=== PATIENT | female | born 1960 | race Caucasian/White ===

== ENCOUNTER 2021-04-02 08:02 | Emergency (ER) | payer OTHER ==
[~2021-04-02] VITALS: Ht 162.6 cm; Wt 56.7 kg
[2021-04-02 09:21] LABS: URINE BILIRUBIN NEGATIVE (Negative); URINE BLOOD TRACE (Negative); URINE CLARITY CLEAR; URINE COLOR YELLOW; URINE GLUCOSE-RANDOM* NEGATIVE (Negative); URINE KETONES TRACE (Negative); URINE LEUKOCYTES-REFLEX TRACE (Negative); URINE PROTEIN (DIPSTICK) NEGATIVE (Negative); URINE SPECIFIC GRAVITY >= 1.030 (1.005-1.035)
[2021-04-02 09:34] LABS: URINE NITRITE-REFLEX POSITIVE (Negative)
[2021-04-02 09:42] LABS: AMORPHOUS URATES Few /LPF (None Seen); CASTS None Seen /LPF (None Seen); SQUAMOUS 0-3 Few /LPF (0-3); URINE RBC None Seen /HPF (NONE SEEN); URINE WBC-REFLEX 0-5 Rare /HPF (0-5)
[2021-04-02] MEDS ORDERED: TRAMADOL 50 MG50 MG PO (13:01)
[2021-04-02] MEDS ORDERED: IBU600 MG PO (13:01)
[2021-04-02 13:04] VITALS: BP 102/60
== END 2021-04-02 13:04 | disposition home or self-care (01) ==
LOC: ER 08:02
PROVIDERS: Student in an Organized Health Care Education/Training Program
DX: S32.592A Other specified fracture of left pubis, initial encounter for closed fracture (principal); T74.21XA Adult sexual abuse, confirmed, initial encounter; F17.210 Nicotine dependence, cigarettes, uncomplicated; Z88.0 Allergy status to penicillin; Y93.89 Activity, other specified; Y92.89 Other specified places as the place of occurrence of the external cause; Y99.8 Other external cause status

== ENCOUNTER 2021-04-23 20:33 | Emergency (ER) | payer OTHER ==
[~2021-04-23] VITALS: Ht 162.6 cm; Wt 56.7 kg
--- NOTE | ~2021-04-23 | EMS ---
[facility] [address] [place] [address] EMS Patient Care Report Name: REYES BHARDWAJ Room #: DEP JORDI Nassar#: [id number] Admission: 04/23/21 Attend Phys: Discharge: 04/23/21 Date of : 56 Report #: [id number] THIS REPORT FOR: //name// Report Transmitted: 04/24/2021 09:42 EMS Care Summary [place], [place]/[facility] Incident [id number] @ 04/23/2021 19:58 Incident Location [address] / [place] [address] Patient REYES BHARDWAJ Female, 60 Years 1960 Patient Address [address] [place] [address] Patient History Behavioral/Psychiatric Disorder, Patient Allergies Penicillin allergy, Patient Medications None Reported, Chief Complaint strange behavior Disposition Transported No Lights/[place] Dispatch Reason Unknown Problem/Person Down Transported To [facility] Narrative pd state that they received several calls on pt. and that pt. was supposedly in the street yelling and carrying on and when they arrived they found pt. standing on a street corner crying and talking nonsense so we were called in. pt. states she has PTSD and she denied any si/hi. pt. states she consumes etoh [facility] [address] [place] [address] EMS Patient Care Report Name: REYES BHARDWAJ Room #: DEP JORDI Nassar#: [id number] Admission: 04/23/21 Attend Phys: Discharge: 04/23/21 Date of : 56 Report #: [id number] products socially or when she hurts but she had one shot today and she didn't hurt anywhere. pt. denied any other complaints or loc. pt. was ambulatory on scene with pd present. pt. was in no distress. pt. had a grocery cart with her with a bag of groceries in it. pt. was cooperative. pt. talked nonstop nonsense during transport. no change in pt. status enroute. Initial Vitals @20:17P: 91,R: 24,BP: 143/79,Pain: 0/10,GCS: 15,CO: 9,SpO2: 97,Revised Trauma: 12, @20:28P: 90,R: 24,Pain: 0/10,GCS: 15,SpO2: 97,Revised Trauma: 12, Assessments @20:09MENTAL:No Abnormalities,SKIN:No Abnormalities,HEENT:Head/Face: No Abnormalities,Eyes: No Abnormalities,Neck/Airway: No Abnormalities,LUNG SOUNDS:General: No Abnormalities,Left Upper: No Abnormalities,Right Upper: No Abnormalities,Left Lower: No Abnormalities,Right Lower: No Abnormalities,ABDOMEN:General: No Abnormalities,Left Upper: No Abnormalities,Right Upper: No Abnormalities,Left Lower: No Abnormalities,Right Lower: No Abnormalities,PELVIS//GI:No Abnormalities,EXTREMITIES:Left Arm: No Abnormalities,Right Arm: No Abnormalities,Left Leg: No Abnormalities,Right Leg: No Abnormalities,PULSE:NEURO:No Abnormalities, Impression Behavioral/psychiatric episode Procedures @20:09ALS AssessmentResponse: Unchanged Timeline 19:57,Call Received 19:57,Dispatch Notified 19:58,Dispatched 19:59,En Route 20:08,On Scene 20:09,At Patient 20:09,ALS Assessment,Response: Unchanged 20:17,BP: 143/79 M,PULSE: 91,RR: 24 R,SPO2: 97 Ox,ETCO2: ,BG: ,PAIN: 0,GCS: 15, 20:19,Depart Scene 20:28,BP: 140/ M,PULSE: 90,RR: 24 R,SPO2: 97 Ox,ETCO2: ,BG: ,PAIN: 0,GCS: 15, 20:30,At Destination 20:41,Call Closed Disclaimer [email or web address] Copyright 2020 [employer] This EMS Care Summary contains data elements from the applicable legal record [address] [address] EMS Patient Care Report Name: REYES BHARDWAJ Room #: DEP ER eCsario#: [id number] Admission: 04/23/21 Attend Phys: Discharge: 04/23/21 Date of : 56 Report #: [id number] (which may be displayed differently). It is designed to provide pertinent information for the following purposes: continuity of care, clinical quality, and state data reporting. The complete legal record is available to ED staff and administrators of the receiving hospital in [employer]'s Patient Tracker. All data is provided "as is."
[~2021-04-23 20:33] MED LIST: IBU600 MG PO; TRAMADOL 50 MG50 MG PO
[2021-04-23] MEDS ORDERED: BACTRIM DS TAB1 EAC1 PO (21:58)
[2021-04-23 22:04] VITALS: BP 146/83
== END 2021-04-23 22:04 | disposition home or self-care (01) ==
LOC: ER 20:33
DX: L02.413 Cutaneous abscess of right upper limb (principal); R07.81 Pleurodynia; Z79.1 Long term (current) use of non-steroidal anti-inflammatories (NSAID); Z88.0 Allergy status to penicillin

== ENCOUNTER 2021-04-29 09:47 | Emergency (ER) | payer OTHER ==
[~2021-04-29] VITALS: Ht 162.6 cm; Wt 56.7 kg
[~2021-04-29 09:47] MED LIST changes: +BACTRIM DS TAB1 EAC1 PO
[2021-04-29 11:05] VITALS: BP 125/80
[2021-04-29] MEDS ORDERED: ULTRAM 50MG TAB50 MG PO ×2 (15:39→15:48)
== END 2021-04-29 11:05 ==
LOC: ER 09:47
DX: R52 Pain, unspecified (principal); Z53.21 Procedure and treatment not carried out due to patient leaving prior to being seen by health care provider

== ENCOUNTER 2021-04-29 12:16 | Emergency (ER) | payer OTHER ==
[~2021-04-29] VITALS: Ht 162.6 cm; Wt 56.7 kg
[2021-04-29 12:39] VITALS: BP 133/73
[2021-04-29] MEDS ORDERED: ULTRAM 50MG TAB50 MG PO ×2 (15:39→15:48)
== END 2021-04-29 14:43 | disposition home or self-care (01) ==
LOC: ER 12:16
DX: M79.18 Myalgia, other site (principal); Z79.1 Long term (current) use of non-steroidal anti-inflammatories (NSAID); Z79.899 Other long term (current) drug therapy; Z88.0 Allergy status to penicillin